=== PATIENT | male | born 1965 | race Caucasian/White ===

== ENCOUNTER 2018-11-06 13:24 | Emergency (ER) | payer MEDICARE, MEDICAID ==
[~2018-11-06] VITALS: Ht 180.3 cm; Wt 160.5 kg
[~2018-11-06 13:24] MED LIST: ALBU6.7H INH; ASPI-496 PO; ASPI-650 PO; ASPI325T80 PO; ATOR10TA9 PO; CARV3.122 PO; CARV6.252 PO; ESZO2TAB22 PO; FOLI20CA PO; FURO40TA6 PO; GABA300C10 PO; HYDR-3237 PO; INSU100C SQ-INSULIN; INSU100V8 SQ; LISI5TAB7 PO; LORA1TAB PO; METF10002 PO; MULT-658 PO; NICO-486 TD; OXYC-307 PO; PANT40TA3 PO; VITA1TAB19 PO
[2018-11-06 13:25] VITALS: BP 121/75
[2018-11-06 14:10] LABS: BASOPHILS # (AUTO) 0.05 x10^3/uL (0-0.1); BASOPHILS % (AUTO) 1 % (0-1); EOSINOPHILS % (AUTO) 3 % (1-7); LYMPHOCYTES # (AUTO) 1.55 x10^3/uL (1-3.4); LYMPHOCYTES % (AUTO) 15 % (22-44); MD NO; MEAN CORPUSCULAR HEMOGLOBIN 28.5 pg (27.5-34.5); MEAN CORPUSCULAR HGB CONC 32.9 g/dL (33.2-36.2); MEAN CORPUSCULAR VOLUME 86.6 fL (81-97); MONOCYTES % (AUTO) 9 % (2-9); NEUTROPHILS # (AUTO) 7.27 x10^3/uL (1.8-6.8); NEUTROPHILS % (AUTO) 72 % (42-75); PLATELET COUNT 289 x10^3/uL (130-400); RED BLOOD COUNT 5.19 x10^6/uL (4.38-5.82); RED CELL DISTRIBUTION WIDTH 14.6 % (9.4-14.8)
[2018-11-06 14:14] LABS: ALBUMIN 3.5 g/dL (3.4-5.0); ANION GAP 4 mmol/L (5-15); CALCIUM 8.4 mg/dL (8.5-10.1); CHLORIDE 108 mmol/L (98-107); CREATININE 0.79 mg/dL (0.7-1.3)
[2018-11-06 14:47] LABS: RAPID INFLUENZA A Negative (Negative); RAPID INFLUENZA B Negative (Negative)
== END 2018-11-06 15:31 | disposition home or self-care (01) ==
LOC: ED 14:28
DX: J06.9 Acute upper respiratory infection, unspecified (principal); H92.03 Otalgia, bilateral; M79.10 Myalgia, unspecified site; E11.9 Type 2 diabetes mellitus without complications
CPT/HCPCS: 36415; 71046; 80048; 82040; 85025; 87081; 87400; 87880; 99284